=== PATIENT | male | born 2000 | race Caucasian/White ===

== ENCOUNTER 2025-07-30 18:56 | Emergency (ER) | payer BC ==
[~2025-07-30] VITALS: Ht 170.2 cm; Wt 54.8 kg
[2025-07-30 20:19] LABS: INFLUENZA B NAA NEGATIVE (NEGATIVE); RESPIRATORY SYNCYTIAL VIR NAA NEGATIVE (NEGATIVE)
[2025-07-30 20:34] VITALS: BP 128/78
== END 2025-07-30 20:34 | disposition home or self-care (01) ==
LOC: ED 18:56
PROVIDERS: Family Medicine
DX: J02.9 Acute pharyngitis, unspecified (principal)
CPT/HCPCS: 87502; 87651; 99283; U0002

== ENCOUNTER 2025-09-05 12:43 | Emergency (ER) | payer BC ==
[~2025-09-05] VITALS: Ht 170.2 cm; Wt 55.5 kg
[2025-09-05 19:17] LABS: BLOOD/HGB, URINE NEGATIVE (Negative); KETONE, URINE NEGATIVE (Negative); LEUK ESTERASE, URINE NEGATIVE (negative); NITRITE, URINE NEGATIVE (negative)
[2025-09-05 19:41] LABS: BASOPHILS 0.2 % (0.2-1.2); EOSINOPHILS 0.4 % (0.8-7.0); LYMPHOCYTES 14.9 % (21.8-53.1); MCH 28.7 PG (25.7-32.2); MCHC 33.9 g/dL (32.3-36.5); MCV 84.7 fL (79.0-92.2); MONOCYTES 4.9 % (5.3-12.2); NEUTROPHILS 79.3 % (34.0-67.9); RBC 5.68 M/uL (4.63-6.08)
[2025-09-05 19:57] LABS: ALT (SGPT) 36.0 U/L (14-59); AST (SGOT) 28.0 U/L (15-37); GLOMERULAR FILTRATION RATE,EST 131.0 mL/min (>60); PROTEIN, TOTAL 9.1 g/dL (6.4-8.2); UREA NITROGEN 7.0 mg/dL (7-18)
[2025-09-05] MEDS ORDERED: LIDOCAINE & ANTACID 35 ML BTL PO ONE (21:15)
[2025-09-05] MEDS ORDERED: PROTONIX40 MG PO (21:38)
[2025-09-05] MEDS ORDERED: PANTOPRAZOLE SODIUM 40 MG TABEC PO ONE (21:45)
[2025-09-05 21:56] VITALS: BP 118/77
== END 2025-09-05 21:59 | disposition home or self-care (01) ==
LOC: ED 12:43
PROVIDERS: Emergency Medicine
DX: R10.10 Upper abdominal pain, unspecified (principal)
CPT/HCPCS: 36415; 80053; 81003; 83690; 85025; 99284; A9270